=== PATIENT | female | born 1990 | race Caucasian/White ===

== ENCOUNTER 2019-07-19 16:37 | Emergency (ER) | payer OTHER, SELFPAY | END 2019-07-19 16:45 | disposition left against medical advice (07) | LOC: EXPBETH 16:42 | PROVIDERS: Emergency Provider Registered Nurse | DX: Z53.21 Procedure and treatment not carried out due to patient leaving prior to being seen by health care provider (principal) | CPT/HCPCS: 99199 ==

== ENCOUNTER 2019-12-05 09:53 | Emergency (ER) | payer OTHER, SELFPAY ==
--- NOTE | ~2019-12-05 | XR_ITS ---
XR foot RT min 3V DATE: 12/05/2019 10:23 INDICATION: Metatarsophalangeal joint pain since 12/02/2019. No injury. TECHNIQUE: 4 views COMPARISON: None FINDINGS: There is mild posterior calcaneal enthesopathy. No fracture or dislocation, periosteal reaction or bone destruction. IMPRESSION: Mild posterior calcaneal enthesopathy Reviewed, dictated and finalized at location A.
[2019-12-05 10:06] VITALS: BP 144/91; PULSE 85; RESP 20; TEMP 37.3; O2SAT 100
--- NOTE | 2019-12-05 10:08 | ED.LOWEXIN ---
HPI - Extremity Injury (Lower) General Chief Complaint: Extremity Injury, Lower Stated Complaint: right foot pain Time Seen by Provider: 12/05/19 10:08 Source: patient and RN notes reviewed History of Present Illness HPI Narrative: Patient is a 29-year-old female who presents the urgent care with complaints of right foot pain. Patient states that she fractured her right foot in 2016 and is has not had any issues since then. However, within the last couple days she is having right foot pain with ambulation or any type of weightbearing activity. Patient denies any recent fall, injury, strenuous activity. Denies of any swelling or bruising. No other acute complaints. No acute distress noted. Patient read the plan of care. Related Data Home Medications Medication Instructions Recorded Confirmed No Home Medications 12/05/19 12/05/19 Allergies Allergy/AdvReac Type Severity Reaction Status Date / Time No Known Drug Allergies Allergy Unknown Unknown Verified 12/05/19 10:13 Review of Systems Review of Systems: Narrative: CONSTITUTIONAL: Denies fever, chills, or sweats. EYES: Denies visual changes, redness, or discharge. ENT: Denies rhinorrhea, congestion, sore throat, or otalgia. CARDIOVASCULAR: Denies chest pain, palpitations, or edema. RESPIRATORY: Denies cough or dyspnea. GASTROINTESTINAL: Denies abdominal pain, nausea, vomiting, or diarrhea. GENITOURINARY: Denies dysuria or hematuria. SKIN: Denies rash or itching. MUSCULOSKELETAL: Reports of pain NEUROLOGIC: Denies headache, numbness, or weakness. All other systems reviewed are negative, except as documented in HPI. PMFSH Social History Social History Smoking status: Never smoker Alcohol intake: current Comments At the time of my signature, I reviewed and agree with the nursing past medical, surgical, social, and family history. There is no relevant family history pertinent to the patient complaint. Exam Narrative: Exam Narrative: GENERAL: This is a well-nourished, well-developed patient, in no apparent distress. HEAD: normocephalic, atraumatic. EYES: PERRL. Sclera clear/white. Vision is grossly intact. EARS: External ears normal NOSE: External nose normal with no obvious nasal discharge, nares without redness, no rhinorrhea. THROAT: Mucous membranes moist NECK: Neck supple SKIN: warm, intact with no suspicious lesions or rash, good texture and turgor. NEURO: awake, alert, and oriented to person, place and time. There were no obvious focal neurologic abnormalities. EXTREMITIES: No obvious deformity, fracture, edema, erythema or ecchymosis noted to the right foot. Negative right foot tenderness. Positive strong right pedal pulse with capillary refill less than 2 seconds. Dorsal right foot pain exacerbated with weightbearing activity. Course Vital Signs Vital signs: Vital Signs Temperature 99.2 F 12/05/19 10:06 Pulse Rate 85 12/05/19 10:06 Respiratory Rate 20 12/05/19 10:06 Blood Pressure 144/91 H 12/05/19 10:06 Pulse Oximetry 100 12/05/19 10:06 Temperature 99.2 F 12/05/19 10:06 Pulse Rate 85 12/05/19 10:06 Respiratory Rate 12/05/19 10:06 Blood Pressure 144/91 H 12/05/19 10:06 Pulse Oximetry 100 12/05/19 10:06 Reviewed?patient is informed that they may have pre-hypertension or hypertension based on a blood pressure reading in the department. I recommend the patient call the primary care provider listed on their discharge instructions or a physician of their choice this week to arrange follow-up for further evaluation of possible pre-hypertension or hypertension. MDM - Extremity Injury (Lower) MDM Narrative Medical decision making narrative: Reviewed x-ray results with the patient. She is aware that x-ray was negative for fracture. There was a notable heel spur. Which is unlikely related to the current pain. I would advise to wear an Jaydon wrap and a supportive shoe for comfort and stability. Avoid wearing flip-uzair
== END 2019-12-05 10:54 | disposition home or self-care (01) ==
PROVIDERS: Emergency Provider Nurse Practitioner Family
DX: M79.671 Pain in right foot (principal); M77.31 Calcaneal spur, right foot
CPT/HCPCS: 73630; 99213; G0463

== ENCOUNTER 2021-10-08 08:42 | Emergency (ER) | payer OTHER, SELFPAY ==
[2021-10-08 08:48] VITALS: BP 130/75; PULSE 78; RESP 16; TEMP 37.3; O2SAT 100
--- NOTE | 2021-10-08 09:15 | ED.EAR ---
HPI - Ear Problem General Chief complaint: Ear Stated complaint: Ear Pain Time Seen by Provider: 10/08/21 09:15 Source: patient and RN notes reviewed Mode of arrival: ambulatory Limitations: no limitations History of Present Illness HPI Narrative: 31-year-old female presents concern for 4-day history of left ear pain and sinus congestion. She reports cough. Reports she took a COVID test yesterday which was negative. She denies fever, bodies, chills, sweats, sore throat, shortness of breath. She reports taking Tylenol ibuprofen without relief. MD Complaint: ear pain Related Data Allergies Allergy/AdvReac Type Severity Reaction Status Date / Time No Known Drug Allergies Allergy Unknown Unknown Verified 10/08/21 09:02 Review of Systems Review of Systems: CONSTITUTIONAL: Denies malaise, chills, sweats, or fever. EYES: Denies visual changes, redness, or discharge. ENT: Denies rhinorrhea, and sore throat. Reports left ear pain, congestion, sinus pain CARDIOVASCULAR: Denies chest pain, palpitations, or edema. RESPIRATORY: Reports cough. Denies dyspnea. GASTROINTESTINAL: Denies abdominal pain, nausea, vomiting, diarrhea SKIN: Denies rash or itching. MUSCULOSKELETAL: Denies myalgia. NEUROLOGIC: Denies headache. All systems reviewed & are unremarkable except as noted in HPI and below PMFSH Social History Social History Smoking status: Never smoker Alcohol intake: current Comments At time of signature, agree with nursing past medical, surgical, social and family history. There is no relevant family history pertinent to the presenting complaint Exam Narrative: GENERAL: Well-appearing, well-nourished, and in no acute distress. HEAD: Normocephalic EYES: PERRLA, conjunctivae clear ENT: Nares clear, left-sided turbinates edematous, clear discharge. Mucous membranes moist. TM pearly contreras with dull light reflex bilaterally; no tragal tenderness. Oropharynx not erythematous without lesions. Tonsils not enlarged and without exudate, no drooling, no hoarseness, no trismus, uvula midline. NECK: Supple. No lymphadenopathy CHEST: Clear to auscultation, breath sounds equal. No wheezing, rhonchi, rales, or stridor. No respiratory distress, speaks in full sentences. HEART: Regular rate and rhythm. No murmur heard. SKIN: Warm, dry, no rash. NEURO: Alert and oriented x3. PSYCH: Normal mood and affect Course Course Emergency Course: Patient is aware of diagnosis, understands and agrees to treatment plan. Anticipatory guidance given. Patient agrees to follow-up as directed and is aware of reasons to seek care at the emergency department. Portions of this record may have been created with voice recognition software Level of Care: Express Care Visit Vital Signs Vital signs: Vital Signs Temperature 99.1 F 10/08/21 08:48 Pulse Rate 78 10/08/21 08:48 Respiratory Rate 16 10/08/21 08:48 Blood Pressure 130/75 10/08/21 08:48 Pulse Oximetry 100 10/08/21 08:48 Temperature 99.1 F 10/08/21 08:48 Pulse Rate 78 10/08/21 08:48 Respiratory Rate 16 10/08/21 08:48 Blood Pressure 130/75 10/08/21 08:48 Pulse Oximetry 100 10/08/21 08:48 Reviewed. Medical Decision Making MDM Narrative Medical decision making narrative: Differential diagnosis considered: Joel virus, strep pharyngitis, allergic rhinitis, upper respiratory tract infection, sinusitis, rhinosinusitis, nasopharyngitis. viral pharyngitis, otitis media, otitis externa, otitis effusion, cerumen impaction, foreign body. Exam findings show no acute concerns or changes; patient is non-toxic appearing and is in no distress. Patient is appropriate for outpatient treatment and follow-up. Vital Signs Vital Signs: Vital Signs Temperature 99.1 F 10/08/21 08:48 Pulse Rate 78 10/08/21 08:48 Respiratory Rate 16 10/08/21 08:48 Blood Pressure 130/75 10/08/21 08:48 Pulse Oximetry 100 10/08/21 08:48 Temperature 99.1 F 10/08/21 08:48 Pulse Rate 7
== END 2021-10-08 09:30 | disposition home or self-care (01) ==
PROVIDERS: Emergency Provider Nurse Practitioner
DX: H69.92 Unspecified Eustachian tube disorder, left ear (principal)
CPT/HCPCS: 99213; G0463